=== PATIENT | female | born 1990 | race Caucasian/White ===

== ENCOUNTER 2025-05-05 02:05 | Day surgery (SDC) | payer OTHER, SELFPAY ==
[2025-04-26 11:04] VITALS: BMI 26.2
--- NOTE | 2025-04-26 11:06 | PC.NURSE ---
Report to the Outpatient Waiting Room, entrance under the green pavilion located off [facility], at time _1100_ on date _[id number]_. Planned Procedure Time: _1pm_.? Time changes happen often and if your time is changed the preop area will call you the afternoon before. - You and your visitor will be asked to self-screen and do not enter if you have any COVID symptoms. Please call surgeon if you need to reschedule. - A mask is optional within the hospital at this time. Patients may have clear liquids (water, carbonated beverages, clear teas, apple juice) until 3 hours prior to surgery with a maximum of 20 ounces. - No food from midnight until time of surgery and no smoking, or chewing tobacco (or any form of nicotine). No chewing gum, candy or mints. Take only the following medications with a SIP of water on the morning of surgery: ___Acetaminophen if needed____ DO NOT STOP ANY OF YOUR OTHER PRESCRIPTION MEDICATIONS PRIOR TO SURGERY EXCEPT THE FOLLOWING Hold all vitamins and supplements for 3 days per anesthesiologist. Medications to discontinue per physician ____No Ibuprofen until after surgery.____ Date to take last dose Please no make-up, nail belarusian, hairspray, perfume, deodorant, or body powder the day of surgery.? No jewelry (including any body piercings) or valuables the day of surgery, leave them at home.? Please take a shower or bath the night before, or the morning of, surgery with an antibacterial soap.? Wear comfortable, loose fitting clothing.? - Jewelry must be removed prior to entering the operating room.? Rings and piercings that are not removed may be cut off. - The hospital will not accept responsibility for valuables.? - Please leave all valuables, including medications, at home the day of surgery. If you are going home after surgery, a licensed local city driver must drive you home.? - NO public transportation without another adult if you receive anesthesia. - We recommend that an adult stay with you for 24 hours following discharge. - We also recommend that you do not drive, make important decision, drink alcoholic beverages, or take any drugs that were not prescribed by your health care provider for at least 24 hours after your discharge time. Follow any additional instructions given to you from your surgeon. Telephone instructions given to __Louise___and asked if any additional questions and then verbalized understanding. Patient advised to call surgeon office or pre surgery nurse liaison [phone] if any additional questions.
[2025-05-05] VITALS (8 sets, daily range): BP systolic 100–105; BP diastolic 54–70; PULSE 61–97; RESP 12–16; TEMP 36.6; O2SAT 98–100
--- NOTE | 2025-05-05 07:12 | PM.IMHP ---
H&P: HPI History of Present Illness Date/Time: 05/05/25 07:12 Chief Complaint: 35-year-old female with chronic tonsillitis, cryptic tonsils ,laryngopharyngeal reflux disease and frequent source of the mouth Review of Systems Review of Systems: All systems reviewed & are unremarkable except as noted in HPI and below Constitutional: Constitutional: Reports as per HPI ENT: Reports as per HPI Respiratory: Respiratory: Reports as per HPI Gastrointestinal: Gastrointestinal: Reports as per HPI [facility] Past Medical History Medical History (Updated 05/05/25 @ 07:13 by Chase Egan MD) Chronic tonsillitis Depression Anxiety Laryngopharyngeal reflux (LPR) Irritable bowel syndrome Chronic GERD Gallbladder disorder Surgical History Surgical History Hx of cholecystectomy 2011 Family History Family History (Updated 04/03/25 @ 15:07 by Tracy Evans MA) Grandparent Diabetes mellitus Grandmother - Maternal Mother Depression Hypertension Heart problem Cerebrovascular accident Sibling Depression Brother Asthma Brother Social History Social History Social History: Caffeine - Daily Years smoked: 5 Smoking status: Former smoker Smoking end date: 04/26/15 Alcohol intake: former Substance use: never Substance use type: does not use Lack of Transportation: No Lack of Food: Never True Current Housing: I Have Housing Concerned About Future Housing: No Difficulty Paying Gas/Electric Bills: No Difficulty Paying for Meds: No Currently Unemployed: No Education: High School Diploma/GED Difficulty w/ Childcare or Family Care: YES Living arrangements: with family Spiritual care concerns: No Meds Home Medications and Allergies Home Medications ?Medication ?Instructions ?Recorded ?Confirmed ?Type acetaminophen 500 mg tablet 1,000 mg PO ONCE PRN pain 04/03/25 05/05/25 History (Tylenol Extra Strength) ibuprofen 800 mg tablet 800 mg PO Q6H 04/03/25 04/26/25 History omeprazole 40 mg capsule,delayed 40 mg PO DAILY 30 days #30 caps 04/03/25 04/26/25 Rx release diphenhydramine HCl 25 mg capsule 25 mg PO HS 04/26/25 04/26/25 History (Banophen) Allergies Allergy/AdvReac Type Severity Reaction Status Date / Time No Known Allergies Allergy Verified 05/05/25 10:43 Exam Const: General: cooperative, healthy appearing, comfortable, no acute distress, well developed, alert, awake and Physically active Orientation/consciousness: oriented to person, oriented to place, oriented to time and patient oriented x3 HENMT: Head: normocephalic and atraumatic Ears: external ears normal and EAC's normal Face/Nose/Sinus: Normal external nose present and Normal nares present Mouth: Yes Normal oral and palatal mucosa present, Yes lip normal and Yes tongue normal Other: cryptic tonsills Eyes: General: appearance normal, both eyes and all related structures Neck: Neck: normal visual inspection, full ROM and trachea midline Resp: Effort & Inspection: normal respiratory effort and able to speak in complete sentences Cardio: Rate: regular rate Neuro: General: oriented to person, oriented to place, oriented to time and patient oriented x3 Assessment and Plan Assessment and plan (1) Chronic tonsillitis: Code(s): J35.01 - Chronic tonsillitis Status: Acute Plan 35-year-old female with chronic tonsillitis, cryptic tonsils ,laryngopharyngeal reflux disease and frequent source of the mouth Interarytenoid erythema and edema in the laryngopharynx indicating laryngopharyngeal reflux disease, chronically inflamed tonsils 1. Tonsillectomy was ordered 2. Risk of tonsillectomy were discussed with the patient -Risks for tonsillectomy were discussed including but not limited to bleeding infection, injury to teeth, gums, lips and/or tongue. TMJ problems. Delayed bleeding that may require further surgery. All the questions were answered to the best of my ability and the patient wished to proceed. The procedures will be scheduled in a timely fashion. 3. LPR diet modification were provided to the patient. 4. Omeprazole for 3 months were sent to pharmacy
--- NOTE | 2025-05-05 07:14 | WPDHPUPDATE1 ---
History and Physical Update Update Date/Time: 05/05/25 07:14 History and Physical has been reviewed, including an updated exam of the patient. There are NO changes in the patient's condition. Risks, benefits, and alternatives have been discussed and questions answered. Patient agrees to proceed with procedure.
--- NOTE | 2025-05-05 07:15 | W.PM.PROC2 ---
Procedure Note - Detailed Date of Procedure 05/05/25 Pre-op Diagnosis chronic tonsillitis Post-op Diagnosis Same Procedure Performed Tonsillectomy Surgeon Chase Egan MD Anesthesia General Indications 1. Chronic tonsillitis 2. Hypertrophy of tonsils 3. Cryptic tonsils Description of Procedure The patient was seen in the preoperative area, informed consent was checked and confirmed. The patient was taken to the operating room, sedated and placed under general anesthesia with an endotracheal intubation. Eyes were taped and were prepped and draped in the usual sterile fashion. We started with tonsillectomy procedure. McIvor Mouth retractor was then placed, and the patient was suspended. Then, we proceeded with tonsillectomy, starting on the right side. The tonsil was retracted and dissected along its capsule using Bizact tonsillectomy device . Bleeding was controlled with a suction cautery and silk ties . We proceeded to the Left side. The tonsil retracted and dissected along its capsule using a Bizact tonsillectomy device. Bleeding was controlled with a suction cautery and silk ties. Tonsil fossae were examined for 5 minutes without tension removed and there was no bleeding. McIvor Mouth retractor was then removed and red rubber catheter was removed. Transferred to PACU? Estimated Blood Loss 5 (ml) Drains No Packing No Pathology Yes (right and left tonsil) Complications No immediate complications Condition Stable Disposition PACU [facility] Billing Surgery - Charge Forward: Surgery Billing
[2025-05-05] MEDS: LACTATED RINGERS 1,000 ML 30 ML IV CONT ×2 (10:35→12:52)
[2025-05-05 10:42] LABS: BEDSIDEPREGUCG Negative (Negative)
--- NOTE | 2025-05-05 10:49 | WPDANESEPPF ---
Anes - Initial Pre Proc Eval Procedure: Operation Date: 05/05/25 13:30 Proposed Procedures p Tonsillectomy And Adenoidectomy - Chase Egan MD Date/Time: 05/05/25 10:49 Surgeon: Chase Egan MD Pre Op Diagnosis: chronic tonsillitis Patient Data Age: 35 Gender: F Height: 1.68 m Weight: 74.9 kg Last Vital Signs Temp 36.6 C 05/05/25 10:35 Pulse 67 05/05/25 10:35 Resp 16 05/05/25 10:35 BP 104/63 05/05/25 10:35 Pulse Ox 100 05/05/25 10:35 O2 Del Method Room Air 05/05/25 10:35 Allergies Allergy/AdvReac Type Severity Reaction Status Date / Time No Known Allergies Allergy Verified 05/05/25 10:43 Home Medications ?Medication ?Instructions ?Recorded ?Confirmed ?Type acetaminophen 500 mg tablet 1,000 mg PO ONCE PRN pain 04/03/25 05/05/25 History (Tylenol Extra Strength) ibuprofen 800 mg tablet 800 mg PO Q6H 04/03/25 04/26/25 History omeprazole 40 mg capsule,delayed 40 mg PO DAILY 30 days #30 caps 04/03/25 04/26/25 Rx release diphenhydramine HCl 25 mg capsule 25 mg PO HS 04/26/25 04/26/25 History (Banophen) Laboratory Tests 05/05/25 10:35 POC Urine HCG, Qual Negative (Negative) Patient hx anesthesia problems: none Family hx anesthesia problems: none Results Review: All pre-operative results and documents have been reviewed as part of the pre-operative evaluation. [facility] Past Medical History Medical History (Updated 05/05/25 @ 07:13 by Chase Egan MD) Chronic tonsillitis Depression Anxiety Laryngopharyngeal reflux (LPR) Irritable bowel syndrome Chronic GERD Gallbladder disorder Surgical History Surgical History Hx of cholecystectomy 2011 Family History Family History (Updated 04/03/25 @ 15:07 by Tracy Evans MA) Grandparent Diabetes mellitus Grandmother - Maternal Mother Depression Hypertension Heart problem Cerebrovascular accident Sibling Depression Brother Asthma Brother Social History Social History Social History: Caffeine - Daily Years smoked: 5 Smoking status: Former smoker Smoking end date: 04/26/15 Alcohol intake: former Substance use: never Substance use type: does not use Lack of Transportation: No Lack of Food: Never True Current Housing: I Have Housing Concerned About Future Housing: No Difficulty Paying Gas/Electric Bills: No Difficulty Paying for Meds: No Currently Unemployed: No Education: High School Diploma/GED Difficulty w/ Childcare or Family Care: YES Living arrangements: with family Spiritual care concerns: No Anes - Eval Final PreProcedure Day of Procedure 05/05/25 10:49 Patient weight: overweight Heart: regular rate and rhythm Lungs: clear to auscultation Airway: Mallampati scale class II Neurological: alert and oriented Last oral intake: >/= 8 hours ASA classification: II Emergent: no Anesthetic plan: proceed Anesthesia type and monitoring: general ETT and standard monitoring Results Review: All pre-operative results and documents have been reviewed as part of the pre-operative evaluation. Informed Consent: The patient's anesthetic plan and its attendant risks and benefits were discussed with the patient/family/POA. Questions were solicited and answers provided to the satisfaction of the patient/family/POA.
--- NOTE | 2025-05-05 12:14 | S_PTH ---
PATIENT: Louise Penn LOC: [facility] U#:[id number] AGE/SX: 35/F ROOM: RE05/05/[address]: Chase Egan MD : 1990 BED: DIS: 05/05/2025 SPEC #: [id number] RECD: 05/05/25 13:20 STATUS: SHANE REQ #: [id number] SRIRAM: 05/05/25 12:[address]: Chase Egan DEPT: [facility] Surgical RECD BY: Lorraine Todd Tissues: A - Tonsils Procedures: Gross and Microscopic Level 2
--- NOTE | 2025-05-05 12:14 | SUR.OPER ---
Family updated @1214- spoke with [id number] Ty
[2025-05-05] MEDS: fentaNYL CITRATE INJ (*CRX) 100 MCG/2 ML VIAL 25 MCG IV PUSH ×4 (13:05→13:25)
[2025-05-05] MEDS: oxyCODONE HCL (*CRX) 5 MG TAB IR PO (13:55)
--- NOTE | 2025-05-05 15:05 | SUR.PHASEII ---
1500: Patient vitals are stable. She is unhooked from monitors, getting dressed, and waiting for her ride to pick her up.
== END 2025-05-05 15:45 | disposition home or self-care (01) ==
PROVIDERS: Visit Provider Otolaryngology Otolaryngology/Facial Plastic Surgery
PROC: (CPT 42826; principal; 2025-05-05 13:30)
DX: J35.01 Chronic tonsillitis (principal); Z87.891 Personal history of nicotine dependence
CPT/HCPCS: 42826; 88302; A9270; J0690; J1100; J2003; J2250; J2405; J2704; J3010; J7120